=== PATIENT | female | born 1960 | race Asian ===

== ENCOUNTER 2019-05-12 09:52 | Day surgery (SDC) | payer OTHER ==
[~2019-05-12 09:52] MED LIST: Buffered Lidocaine 1% SYRIN* 1 ML/SYRINGE INTRADERM ONE; Dexamethasone IV* 4 MG/ML 1 ML (4 MG) IV SLOW PU ONE; Famotidine IV* 10 MG/ML 2 ML (20 mg) IV ONE; Lactated Ringers 1000 ML Bag* 1,000 ML IV SCH
[2019-05-12] MEDS ORDERED: Dexamethasone IV* 4 MG/ML 1 ML (4 MG) ONE (10:49)
[2019-05-12] MEDS ORDERED: Famotidine IV* 10 MG/ML 2 ML (20 mg) ONE (10:49)
[2019-05-12] MEDS ORDERED: Buffered Lidocaine 1% SYRIN* 1 ML/SYRINGE INTRADERM ONE (10:49)
[2019-05-12] MEDS ORDERED: Naloxone* 0.4 MG/ML 1 ML VIAL IV PRN (11:43)
[2019-05-12] MEDS ORDERED: oxyCODONE/Acetamin 5/325 MG* TAB PO PRN (11:43)
[2019-05-12] MEDS ORDERED: PROCHLORPERAZINE INJ 5 MG/ML 2 ML VIAL IV PRN (11:43)
[2019-05-12] MEDS ORDERED: DiMENhydriNATE IV* 50 MG/ML VIAL IV PUSH PRN (11:43)
[2019-05-12] MEDS ORDERED: Midazolam* 1 MG/ML 2 ML VIAL (2 MG) ONE (11:44)
[2019-05-12] MEDS ORDERED: fentaNYL* 50 MCG/ML 2 ML VIAL (100 MCG VIAL) ONE (11:44)
[2019-05-12] MEDS ORDERED: Bupivacaine 0.25% SDV PF* 10 ML VIAL INJ ONE (13:05)
[2019-05-12] MEDS ORDERED: Ketorolac INJ* 30 MG/ML 1 ML VIAL ONE (13:14)
[2019-05-12] MEDS ORDERED: Propofol* 10 MG/ML 20 ML BTL ONE ×2 (13:14→13:24)
[2019-05-12] MEDS ORDERED: Lidocaine 2% PF * 5 ML VIAL ONE (13:15)
[2019-05-12] MEDS ORDERED: KETAMINE HCL* 50 MG/ML 10 ML VIAL ONE (13:19)
--- NOTE | 2019-05-12 14:32 | OP ---
DATE OF OPERATION: 05/12/19 - SDS DATE OF : 58 SURGEON: Santiago Jackson MD. [employer]: ANDERSON Eric. ANESTHESIOLOGIST: Dr. Lucia. ANESTHESIA: MAC. PRE-OP DIAGNOSIS: Right carpal tunnel syndrome. POST-OP DIAGNOSIS: Right carpal tunnel syndrome. OPERATIVE PROCEDURE: Right endoscopic carpal tunnel release. INDICATIONS: Ignacio is 59 years old. She has right carpal tunnel syndrome. We talked about her treatment options and she had wanted to proceed with a carpal tunnel release. ESTIMATED BLOOD LOSS: 1 mL. COMPLICATIONS: None. FINDINGS: See above and below. DESCRIPTION OF PROCEDURE: Ms. Agudelo was seen in the preoperative holding area. The correct site, side, and procedure were identified. We came back to the operating room. The arm was prepped and draped in the usual fashion and a time- out was performed. The arm was exsanguinated with the Esmarch and the tourniquet was inflated to 250 mmHg. I made a 1 cm transverse incision just ulnar to the palmaris longus tendon. Dissection was carried down and the distal antebrachial fascia was split transversely with the tenotomy scissors. The synovial stripper followed by the dilators was used to prepare the under-surface of the transverse carpal ligament. A Q-tip was used to dry out the carpal tunnel. I then placed the MicroAire endoscopic carpal tunnel system. I went ahead in the appropriate location. I pulled on the trigger to elevate the blade. The release was then carried from distal to proximal. Once I had completed the release, I placed a Maricel retractor in the carpal tunnel to confirm the release. Everything was looking good. I then released the distal antebrachial fascia proximally. The wound was irrigated out and closed with 4-0 Prolene suture. A Steri-Strip was applied. Plain Marcaine 0.25% was infiltrated about the area. The soft dressing was applied and she was taken to the recovery room in stable condition. [id number]/[facility] #: [id number] MTDD
[2019-05-12] MEDS ORDERED: hydrALAZINE IV* 20 MG/ML VIAL ONE (15:11)
[2019-05-12 15:29] VITALS: BP 152/93
== END 2019-05-12 15:46 | disposition home or self-care (01) ==
LOC: OR 09:52
PROVIDERS: ATTEND Orthopaedic Surgery Hand Surgery
DX: G56.01 Carpal tunnel syndrome, right upper limb (principal)
CPT/HCPCS: J0360; J1100; J1885; J2250; J2704; J3010; J3490

== ENCOUNTER → 2019-06-30 10:39 | Day surgery (SDC) | payer OTHER ==
[~2019-06-30 10:39] MED LIST changes: +Bupivacaine 0.25% SDV PF* 10 ML VIAL INJ ONE; +Dexamethasone IV* 4 MG/ML 1 ML (4 MG) ONE; +DiMENhydriNATE IV* 50 MG/ML VIAL IV PUSH PRN; +Famotidine IV* 10 MG/ML 2 ML (20 mg) ONE; +HYDROcodone/ACETAMIN 5-325 MG* 1 TAB PO PRN; +Lidocaine 2% PF * 5 ML VIAL ONE; +Naloxone* 0.4 MG/ML 1 ML VIAL IV PRN; +Ondansetron INJ* 2 MG/ML VIAL IV PRN; +Propofol* 10 MG/ML 20 ML BTL ONE; +fentaNYL* 50 MCG/ML 2 ML VIAL (100 MCG VIAL) IV PRN; +fentaNYL* 50 MCG/ML 2 ML VIAL (100 MCG VIAL) ONE
[2019-06-30 14:22] VITALS: BP 123/94
--- NOTE | 2019-06-30 17:35 | OP ---
DATE OF OPERATION: 06/30/19 - [facility] DATE OF : 58 SURGEON: Dr. Santiago Jackson. PADDLE DYEING MACHINE OPERATOR: None. ANESTHESIOLOGIST: Dr. Leal. ANESTHESIA: General. PRE-OP DIAGNOSIS: Left carpal tunnel syndrome. POST-OP DIAGNOSIS: Left carpal tunnel syndrome. OPERATIVE PROCEDURE: Left endoscopic carpal tunnel release. INDICATIONS: Ms. Pierre has carpal tunnel syndrome. She has done well with surgery on the right. We talked about risks and benefits. She wanted to proceed. ESTIMATED BLOOD LOSS: 1 mL. COMPLICATIONS: None. FINDINGS: See above and below. OPERATIVE PROCEDURE: Ms. Pierre was seen in the preoperative holding area. The correct site, side, and procedure were identified. We came back to the operating room. The arm was prepped and draped in the usual fashion and a time- out was performed. The arm was exsanguinated with the Esmarch and the tourniquet was inflated to 250 mmHg. I made a 1 cm transverse incision just ulnar to the palmaris longus tendon. Dissection was carried down through the subcutaneous tissue and the distal antebrachial fascia was split transversely with a tenotomy scissors bluntly. A 2- prong skin hook was placed. The synovial stripper followed by the dilators were used. A Q-tip was used to dry out the canal. The MicroAire endoscopic device was introduced into the carpal tunnel. When I had it in the appropriate location, I pulled the trigger to elevate the blade. The release was carried out from distal to proximal. Maricel retractor was placed and the release was confirmed. The distal antebrachial fascia was released proximally. The wound was irrigated out and closed with 4-0 Prolene suture. A 0.25% plain Marcaine was infiltrated about the area. Soft dressing was applied and she was taken to the recovery room in stable condition. [id number]/[facility] #: [id number]
== END | disposition home or self-care (01) ==
LOC: OR 10:39
PROVIDERS: ATTEND Orthopaedic Surgery Hand Surgery
DX: G56.02 Carpal tunnel syndrome, left upper limb (principal)
CPT/HCPCS: J1100; J2704; J3010; J3490